=== PATIENT | male | born 1955 | race Caucasian/White ===

== ENCOUNTER → 2018-09-21 | Outpatient (CLI) | payer BC ==
[~2018-09-21] MED LIST: GADOBENATE 529MG/1ML 15ML VIAL IVP ONE
--- NOTE | 2018-09-21 10:42 | RADIOLOGY IMAGING REPORT ---
FACILITY: [facility] PATIENT NAME: Hao Brandt : 1955 MR: [id number] V: [id number] EXAM DATE: ORDERING PHYSICIAN: DECLAN THOMPSON TECHNOLOGIST: Location: [facility] [place] Patient: Hao Brandt : 1955 Visit/Account:[id number] Date of Sevice: 09/21/2018 INDICATION: . Soft tissue mass. DATE: 09/21/2018 10:32 AM. TECHNIQUE: MR FEMUR WO/W RT. Multisequence, multi planar pre and postcontrast MR imaging was performe d of the right femur. 13 mL MultiHance administered. COMPARISON: None available. FINDINGS: Within the distal vastus medialis posteromedial to the femoral shaft is an approximately 3.2 x 3.1 x 7.0 cm predominantly fat-containing mass. The mass has a few internal soft tissue septations. There i s no significant edema within the adjacent vastus medialis musculature, and the mass does not extend to the femur. It shows no definite enhancement. There are no other lesions. Though not optimized for evaluation of the hip, there is likely a tear of the anterior labrum with an associated para labral cyst. IMPRESSION: 1. The predominantly fat-containing mass centered within the vastus medialis musculature may be a lip sunday, but a low-grade liposarcoma cannot be entirely excluded. 2. Probable tear of the anterior labrum on the right with a small associated para labral cyst. Report Dictated By: Angel Dai MD at 09/21/2018 10:32 AM Report E-Signed By: Angel Dai MD at 09/21/2018 10:38 AM WSN:[id number]
--- NOTE | 2018-09-21 12:09 | RADIOLOGY IMAGING REPORT ---
FACILITY: [facility] PATIENT NAME: Hao Brandt : 1955 MR: [id number] V: [id number] EXAM DATE: ORDERING PHYSICIAN: DECLAN THOMPSON TECHNOLOGIST: Location: [facility] - [place] Patient: Hao Brandt : 1955 Visit/Account:[id number] Date of Sevice: 09/21/2018 EXAMINATION: Aorta ultrasound with duplex Doppler evaluation HISTORY: Tobacco dependence, screening COMPARISON: None. FINDINGS: Suprarenal abdominal aorta: 2.5 x 2.5 cm AP and transverse dimensions Superior infrarenal abdominal aorta: 2.3 x 2.4 cm AP and transverse dimensions Mid infrarenal abdominal aorta: 2.1 x 2.2 cm AP and transverse dimensions Inferior infrarenal abdominal aorta: Three x 2.8 cm AP and transverse dimensions Proximal common iliac artery diameter: Left 9.6 mm; right 9.4 mm Aorta wall: Mild intimal thickening Aorta and proximal common iliac artery are patent by duplex Doppler ultrasound. IMPRESSION: Approximately 5.3 cm distal to the renal arteries there is an outpouching in the distal abdominal aor ta measuring 3 x 2.8 cm. Report Dictated By: Fiordaliza Kim MD at 09/21/2018 12:03 PM Report E-Signed By: Fiordaliza Kim MD at 09/21/2018 12:05 PM WSN:[email or web address]
== END ==
LOC: MRI 07:05
PROVIDERS: ATTEND Family Medicine
DX: F17.200 Nicotine dependence, unspecified, uncomplicated (principal); R22.41 Localized swelling, mass and lump, right lower limb
CPT/HCPCS: 73720; 93979; A9577

== ENCOUNTER → 2018-10-16 | Outpatient (REF) | payer BC ==
[2018-10-16 11:42] LABS: PLATELET COUNT, AUTOMATED 220 K/uL (150-450)
== END ==
LOC: ZZSENDIN 11:29
PROVIDERS: ATTEND Family Medicine
DX: Z01.818 Encounter for other preprocedural examination (principal)
CPT/HCPCS: 81001; 82040; 82247; 82310; 82374; 82435; 82565; 82947; 84075; 84132; 84155; 84295; 84450; 84460; 84520; 85025

== ENCOUNTER → 2018-10-30 | Outpatient (CLI) | payer BC | LOC: RESP 01:56 | PROVIDERS: ATTEND Family Medicine | DX: I44.4 Left anterior fascicular block (principal) | CPT/HCPCS: 93017; 93350 ==

== ENCOUNTER 2018-11-03 01:33 | Inpatient (IN) | payer BC ==
--- NOTE | 2018-11-02 10:56 | LEVENE H&P ---
DATE OF ADMISSION: November 05, 2018 IDENTIFICATION/CHIEF COMPLAINT Hao is a 63-year-old gentleman with a chief complaint of right hip pain. HISTORY OF PRESENT ILLNESS Patient has a longstanding history of hip arthritis progressively painful and debilitating and refractory to conservative care. Surgery is indicated to relieve symptoms after failure of nonoperative measures. PAST MEDICAL HISTORY Notable for excellent health. PAST SURGICAL HISTORY Hernia repair and appendectomy. ALLERGIES No allergies. CURRENT MEDICATIONS None. FAMILY HISTORY Notable for mother with stroke. SOCIAL HISTORY He has smoked 1/2 pack of cigarettes a day for 50 years. He drinks alcohol socially. He denies abuse. REVIEW OF SYSTEMS Negative. PHYSICAL EXAMINATION GENERAL: Healthy male who appears his stated age. HEENT: Normocephalic, atraumatic. . NECK: Supple. LUNGS: Clear. HEART: Regular ABDOMEN: Soft. ORTHOPEDIC EXAMINATION Right hip is stiff with limited rotation and flexion. He has no notable limitation of abduction/adduction. He has pain with attempt at combined flexion and rotation. Hip girdle strength is normal. Skin envelope is intact. Calves are nontender. Neurovascular function is intact. Radiographs demonstrate end-stage arthritis. ASSESSMENT Right hip degenerative joint disease, refractor to conservative care. PLAN Per patient's request, we will proceed with total hip arthroplasty. The nature of the procedure, risks, benefits and anticipated rehab course reviewed. Risks of the procedure include but are not limited to , major medical or anesthetic complications, infection, neurovascular injury, blood transfusion, stiffness, scarring, fracture, tendon rupture, instability, leg length discrepancy, implant loosening, migration or failure, need for additional surgery and other unforeseen. He understands and wishes to proceed. Signed permit was placed in chart. No guarantees are given or implied. [facility]
[2018-11-02 15:26] LABS: INR 0.98
[~2018-11-03] VITALS: Ht 172.7 cm; Wt 61.2 kg
[2018-11-03] VITALS (11 sets, daily range): BP systolic 94–168; BP diastolic 70–117
[2018-11-03] MEDS ORDERED: PREGABALIN 150 MG CAPSULE PO ONE (06:45)
[2018-11-03] MEDS ORDERED: NORMOSOL R SOLN(*) 1000 ML BAG 1,000 ML IV PRN ×2 (06:45→11:15)
[2018-11-03] MEDS ORDERED: MIDAZOLAM 2 MG/2 ML VIAL IVP PRN (06:45)
[2018-11-03] MEDS ORDERED: CELECOXIB 200 MG CAP PO ONE (06:45)
[2018-11-03] MEDS ORDERED: FAMOTIDINE 20 MG TAB PO ONE (06:45)
[2018-11-03] MEDS ORDERED: ACETAMINOPHEN 500 MG TAB PO ONE (06:45)
[2018-11-03] MEDS ORDERED: LIDOCAINE/SOD BICARB 8.4% SYR ID ONE (06:45)
[2018-11-03] MEDS ORDERED: TRANEXAMIC AC 1000 MG/10ML SDV 1,000 MG in DEXTROSE 5% 50 ML BAG 50 ML IV ONE (07:30)
[2018-11-03] MEDS ORDERED: fentaNYL CITR 100 MCG/2 ML AMP ONE ×2 (07:34→09:35)
[2018-11-03] MEDS ORDERED: LIDOCAINE MPF 1% 5 ML VIAL ONE (07:35)
[2018-11-03] MEDS ORDERED: PROPOFOL EMUL(*) 10MG/ML 20 ML 20 ML ONE (07:35)
[2018-11-03] MEDS ORDERED: ROPIVACAINE/EPI/CLONIDINE/KET 50 ML SYRINGE INJ ONE (07:45)
[2018-11-03] MEDS ORDERED: ceFAZolin(*) 1 GM VIAL 1 GM in NS(*) 0.9% 100 ML MINI-BAG 100 ML IVPB ONE (07:45)
[2018-11-03] MEDS ORDERED: VANCOMYCIN 1 GM VIAL ONE (08:44)
[2018-11-03] MEDS ORDERED: DEXAMETHASONE SOD PHOS 10MG/ML ONE (09:01)
[2018-11-03] MEDS ORDERED: ONDANSETRON 4 MG/2 ML VIAL ONE (09:02)
[2018-11-03] MEDS ORDERED: KETAMINE HCL 200 MG/20 ML MDV ONE (09:04)
--- NOTE | 2018-11-03 11:03 | OPERATIVE REPORT 1 ---
EVENT DATE: November 03, 2018 SURGEON: Jose Prado MD ANESTHESIOLOGIST: John Robertson MD ANESTHESIA: General plus spinal. ORCHID GROWER: Oliverio aMrsh PA-C PREOPERATIVE DIAGNOSIS Right hip degenerative joint disease. POSTOPERATIVE DIAGNOSIS Right hip degenerative joint disease. PROCEDURE PERFORMED Right total hip arthroplasty. ESTIMATED BLOOD LOSS 200 cc. DRAINS None. SPECIMENS None. COMPLICATIONS None apparent. IMPLANTS Harris System with Trident PSL 50HA cluster acetabular shell, Trident X3 0- degree polyethylene liner to accommodate 36 mm head, Accolade 232 neck angle hip stem size 3 with a Biolox Delta ceramic view 40 taper femoral head, 36 mm +5 neck length. INDICATIONS Hao is a 63-year-old gentleman with intractable pain related to end-stage hip arthritis. Surgery is indicated to relieve symptoms after failure of non- operative measures. DESCRIPTION OF PROCEDURE The patient was taken to the operating room and placed supine on the operating table. General anesthesia was induced after spinal block was administered by the anesthesiologist. Antibiotics and TXA were administered IV. He was positioned in the left lateral decubitus on a well-padded peg board. All bony prominences and superficial nerves were well padded. The right hip girdle and lower extremity were prepped and draped in the usual sterile fashion for hip arthroplasty. A mini-incision, 3 to 4 inch incision, was made centered over the tip of the troch, carried down through the skin and subcutaneous tissue to the deep fascia. The fascia was incised over the tip of the trochanter, extended distally in line with the femur and proximally in line with the nohemi fibers. The nohemi fibers were split bluntly. The trochanteric bursa was excised. The interval between the abductor and external rotator was entered and the abductor mechanism was protected with a blunt Hohmann. An L-capsulotomy/tenotomy was made with the horizontal limb just above the piriformis. External rotators and capsule were peeled off the posterior femur, tagged with #2 Vicryl for later anatomical reattachment. The femoral head was dislocated. End-stage arthritic change was noted. A 1.57 neck cut was made consistent with preoperative planning. The femoral head was extracted. The femur was translocated anteriorly. Periacetabular retractors were placed with the tips down on bone. Labrum and pulvinar are excised. Transverse acetabular ligaments were identified. A 44 mm reamer was used to medialize the true medial wall of the acetabulum and expanded in 2 mm increments up to 50, where nice rim contact is obtained. 50 trial has good fit. 51 is used to open through to the acetabulum and to accommodate the raised rim liner. The actual shell was impacted in approximately 40 degrees of lateral opening and 15 degrees of anteversion using the transverse acetabular ligament, internal bony ligaments and the extracorporeal guide to guide socket placement. Rock solid fixation was achieved. No adjuvant fixation was felt to be needed. The shell was lavaged and dried and the actual liner was locked into the cup. Attention was turned to the femoral preparation. The superior neck was dissected with cookie-cutter. A Charnley awl finds the canal. Taper broaching is performed, lateralizing and following the anteversion of the [place] reef of calcar to about 12 to 15 degrees. A 3 broach has good solid fit and stability and trial reduction performed on this and good sabianist of soft tissue tissue and limb length are achievable. The broach is removed and the actual stent was impacted, seats at same height. Trial reduction was performed with various neck lengths. +5 was optimal for sabianist of limb length, soft tissue tension stability and Hu taper. It was lavaged and dried. Biolox head was impacted on the Hu taper. Joint was reduced. Wound was copiously lavaged with pain cocktail infiltrated throughout. Vanco powder was placed deep in the wound. External rotators and capsule were reapproximated anatomically through drill holes of the previously placed #2 Vicryl suture. Deep fascia was closed distally with #2 Ethibond and proximally with #2 Vicryl. Subcutaneous was closed with 3-0 Vicryl, skin with 4-0 Monocryl and peroneal adhesive mesh dressing applied followed by Xeroform dry sterile dressing and hip compression. The patient was rolled supine. Abduction pillow was placed. He was awakened from anesthesia and taken to recovery room in stable condition, having tolerated the procedure well. The plan is for a standard total hip arthroplasty rehab protocol. [facility]
[2018-11-03] MEDS ORDERED: BENZOCAINE/MENTHOL 1 EACH LOZG PO PRN (11:15)
[2018-11-03] MEDS ORDERED: MAGNESIUM HYDROXIDE* 30ML UDCP PO PRN (11:15)
[2018-11-03] MEDS ORDERED: BISACODYL 10 MG SUPP PR PRN (11:15)
[2018-11-03] MEDS ORDERED: ACETAMINOPHEN 325 MG TAB PO PRN (11:15)
[2018-11-03] MEDS ORDERED: DIAZEPAM 5 MG TAB PO PRN (11:15)
[2018-11-03] MEDS ORDERED: diphenhydrAMINE 50 MG/ML VIAL IVP PRN (11:15)
[2018-11-03] MEDS ORDERED: PROMETHAZINE 25 MG/ML 1 ML AMP IVP PRN (11:15)
[2018-11-03] MEDS ORDERED: diphenhydrAMINE 25 MG CAP PO PRN (11:15)
[2018-11-03] MEDS ORDERED: FLUSH 10 ML SYR IVP PRN (11:15)
[2018-11-03] MEDS ORDERED: ZOLPIDEM TARTRATE 5 MG TAB PO PRN (11:15)
--- NOTE | 2018-11-03 13:12 | Hospitalist Consultation ---
History of Present Illness Requesting Physician Dr. Prado Reason for Consult Medical Management Chief Complaint s/p right hip replacement History of Present Illness He was admitted s/p right hip replacement. It is reported the surgery went well and with complication. History Home Meds No Active Prescriptions or Reported Meds Allergies: Coded Allergies: No Known Drug Allergies (Unverified , 10/19/18) Patient History: Patient reports no known family medical history. Hx Smoking: No Smoking Status: Former Smoker Exposure to Second Hand Smoke?: No When Quit Tobacco?: 09/30/2018 Caffeine Intake: Soda Caffeine/Cups Per Day: 2/day Hx Alcohol Use: Yes Alcohol Used: Liquor Hx Substance Use Disorder: No Social Drug Use: Never Review of Systems All Systems Reviewed/Normal: Yes, Except as Noted Exam Vital Signs Vital Signs Date Time Temp Pulse Resp B/P (MAP) Pulse Ox O2 Delivery O2 Flow Rate FiO2 11/03/18 12:15 72 168/95 (119) 95 Nasal Cannula 1.0 11/03/18 11:45 97.5 12 General Appearance: Alert, Awake, No Acute Distress, Afebrile Cardiovascular: Regular Rate and Rhythm Respiratory: No Respiratory Distress, Clear to Auscultation GI: Abd Soft and Non-Tender Psych: Alert & Oriented X3, Appropriate Mood & Affect Assessment and Plan Problems: (1) Status post right hip replacement Status: Acute Assessment & Plan: Followed by Dr. Prado. He will be placed on Aspirin for DVT prophylaxis. Hospitalist service will follow along for any medical needs. Venous Thromboembolism Antithrombotics Is Pt On Any Antithrombotics?: No BARBARA SALDIVAR Nov 03, 2018 13:12
--- NOTE | 2018-11-03 14:14 | RADIOLOGY IMAGING REPORT ---
FACILITY: [facility] - [place] PATIENT NAME: Hao Brandt : 1955 MR: [id number] V: [id number] EXAM DATE: ORDERING PHYSICIAN: YENI ARTEAGA TECHNOLOGIST: Location: [facility] Patient: Hao Brandt : 1955 Visit/Account:[id number] Date of Sevice: 11/03/2018 Exam type: PELVIS History: CONFIRM PLACEMENT Comparison: None. Findings: A single AP view the pelvis demonstrate a right hip arthroplasty that appears in good anatomic alignm ent on this single AP view. Soft tissue gas projects to the right of the hip joint on this postopera tive image IMPRESSION: 1. As above Report Dictated By: Fiordaliza Kim MD at 11/03/2018 2:08 PM Report E-Signed By: Fiordaliza Kim MD at 11/03/2018 2:08 PM WSN:[email or web address]
[2018-11-03] MEDS ORDERED: NS(*) 0.9% 250 ML BAG 250 ML IV SCH (14:55)
--- NOTE | 2018-11-03 15:23 | NUR ---
Physical Therapy Impression PT eval complete. Pt verbalizes and demonstrates understanding of hip precautions. Pt requires SBA for bed mobility and CGA for sit<>stand. Pt initially performed walking in place to evaluate for safety with ambulation in the context of L LE numbness. Pt demonstrated safety, thus, ambulated CGA x 20' using RW without increase in R hip pain. Recommend OP PT at [place]. Physical Therapy Goals 1. Mod I bed mobility. 2. Mod I transfers. 3. Mod I gait x 150' with RW. 4. Ascend/descend 1 step. 5. Bieber with hip precautions. Patient's Goals
[2018-11-03] MEDS: ceFAZolin(*) 1 GM VIAL 1 GM in NS(*) 0.9% 100 ML MINI-BAG 100 ML IVPB SCH (17:24)
[2018-11-03] MEDS: CELECOXIB 200 MG CAP PO SCH (17:24)
[2018-11-03] MEDS: APAP/HYDROCODONE 325/7.5 TAB PO PRN (22:02)
[2018-11-04] MEDS: ceFAZolin(*) 1 GM VIAL 1 GM in NS(*) 0.9% 100 ML MINI-BAG 100 ML IVPB SCH ×2 (01:17→08:24)
[2018-11-04 03:20] VITALS: BP 166/94
[2018-11-04 06:53] VITALS: BP 152/99
[2018-11-04] MEDS ORDERED: ASPI-757 PO (07:29)
[2018-11-04] MEDS: APAP/HYDROCODONE 325/7.5 TAB PO PRN (08:25)
[2018-11-04] MEDS: CELECOXIB 200 MG CAP PO SCH (08:25)
--- NOTE | 2018-11-04 08:58 | Hospitalist Progress Note ---
Subjective Progress Notes Subjective He was admitted s/p hip replacement. He had no acute events overnight. Patient Complains of: Cardiovascular: No: Chest Pain Respiratory: No: Shortness of Breath Physical Exam Vital Signs Date Time Temp Pulse Resp B/P (MAP) Pulse Ox O2 Delivery O2 Flow Rate FiO2 11/04/18 06:53 98.1 68 152/99 (116) 94 11/04/18 03:20 18 Room Air 1.0 Intake and Output 11/04/18 01:00 Intake Total 3660 ml Output Total 150 ml Balance 3510 ml Intake Oral 100 ml IV Total 2210 ml Other 1350 ml Output Estimated Blood Loss 150 ml # Voids 1 General Appearance: Alert, Awake, No Acute Distress, Afebrile Cardiovascular: Regular Rate and Rhythm Respiratory: No Respiratory Distress, Clear to Auscultation GI: Soft and Non-Tender Psych: Alert & Oriented X3, Appropriate Mood & Affect Assessment and Plan Problems: (1) Status post right hip replacement Status: Acute Assessment & Plan: Followed by Dr. Prado. He was placed on Aspirin for DVT prophylaxis. He was recommended to follow up with PCP regarding elevated blood pressures throughout admission. He reports he will follow up with Dr. Matt. Copies to: DECLAN MATT MD ; Exam Sepsis Risk: No Definite Risk BARBARA SALDIVAR MECHANIC INSULATOR Nov 04, 2018 08:58
[2018-11-04] MEDS ORDERED: ASPIRIN 325 MG TAB PO SCH (09:00)
--- NOTE | 2018-11-04 10:00 | NUR ---
Physical Therapy Impression Patient ambulated with FWW ~300 feet with SBA and cuing to stay close to his walker and for posture. Patient ascended and descended 4 stairs in gym with step to gait and railing on both sides with SBA. Patient met all goals and is ready to d/c to OP PT. Physical Therapy Goals 1. Mod I bed mobility. 2. Mod I transfers. 3. Mod I gait x 150' with RW. 4. Ascend/descend 1 step. 5. Cataño with hip precautions. Patient's Goals
--- NOTE | 2018-11-04 11:20 | NUR ---
Occupational Therapy Impression Pt alert and agreeable to OT tx. Recalling 3/3 posterior hip precautions and adhering throughout tx. Pt has a toilet riser, shower chair, and slip on shoes. Educated on where to obtain a consumer services consultant, verbalized understanding. Pt declined need for sock aid (plans not to wear socks). Plans to discharge to friends single level home with walk-in shower. No reported pain. Pt met all skilled OT goals. Presents with no further questions/concerns for OT at this time. Ready for discharge when medically appropriate. Occupational Therapy Goals Patient's Goal
[2018-11-04] MEDS ORDERED: HYDR-654 PO (12:05)
[2018-11-04 12:39] VITALS: Ht 172.7 cm; Wt 61.2 kg
== END 2018-11-04 13:40 | disposition home or self-care (01) | DRG 470 ==
LOC: OR 01:33 → OBSVTOIN 11:40 → MED 11:40
PROVIDERS: ADMIT Orthopaedic Surgery; ATTEND Orthopaedic Surgery
PROC: 0SR904A Replacement of Right Hip Joint with Ceramic on Polyethylene Synthetic Substitute, Uncemented, Open Approach (ICD-10-PCS; principal; 2018-11-03 08:41)
DX: M16.12 Unilateral primary osteoarthritis, left hip (principal); I71.4 Abdominal aortic aneurysm, without rupture; Z87.891 Personal history of nicotine dependence
CPT/HCPCS: 36415; 72170; 85610; 86850; 86900; 86901; 97161; 97165; C1776; J0690; J1100; J2001; J2250; J2405; J2704; J3010; J3370; J3490; J7050; J7060